=== PATIENT | female | born 1935 | race Caucasian/White ===

== ENCOUNTER 2018-11-10 17:28 | Emergency (ER) | payer OTHER ==
[~2018-11-10] VITALS: Ht 154.9 cm; Wt 77.1 kg
[2018-11-10] MEDS ORDERED: ESOMEPRAZOLE MA40 MG (17:50)
[2018-11-10] MEDS ORDERED: TOPROL XL50 MG (17:51)
[2018-11-10] MEDS ORDERED: FOLGARD TABLET1 EACH (17:51)
[2018-11-10] MEDS ORDERED: LISINOPRIL10 MG (17:51)
[2018-11-10] MEDS ORDERED: DITROPAN XL10 MG (17:52)
[2018-11-10] MEDS ORDERED: CARAFATE1 GM (17:52)
[2018-11-10] MEDS ORDERED: KETO10TA2 PO (19:57)
[2018-11-10] MEDS ORDERED: PERCOCET 5-3251 EACH PO (19:57)
== END 2018-11-10 20:19 | disposition home or self-care (01) ==
LOC: ER 17:28
DX: S42.251A Displaced fracture of greater tuberosity of right humerus, initial encounter for closed fracture (principal); W01.198A Fall on same level from slipping, tripping and stumbling with subsequent striking against other object, initial encounter; Y93.E8 Activity, other personal hygiene; Y92.091 Bathroom in other non-institutional residence as the place of occurrence of the external cause; Y99.8 Other external cause status